=== PATIENT | female | born 1985 | race Caucasian/White ===

== ENCOUNTER 2018-08-26 06:05 | Day surgery (SDC) | payer OTHER | END 2018-08-26 11:25 | disposition home or self-care (01) | LOC: AMB-ENDOS 06:05 | DX: K57.20 Diverticulitis of large intestine with perforation and abscess without bleeding (principal) ==

== ENCOUNTER 2018-11-11 07:32 | Outpatient (CLI) | payer OTHER | END 2018-11-11 07:40 | disposition home or self-care (01) | LOC: TOM 07:32 | DX: R10.31 Right lower quadrant pain (principal); R10.32 Left lower quadrant pain ==

== ENCOUNTER 2019-05-12 21:20 | Emergency (ER) | payer OTHER ==
[~2019-05-12] VITALS: Ht 165.1 cm; Wt 136.1 kg
[2019-05-12] MEDS ORDERED: COZAAR25 MG PO (21:40)
[2019-05-12] MEDS ORDERED: HYDROCHLOROTHIA25 MG PO (21:40)
[2019-05-12] MEDS ORDERED: DICY20TA PO (21:40)
[2019-05-12] MEDS ORDERED: DEXILANT60 MG PO (21:40)
[2019-05-13] MEDS ORDERED: LEVSIN/SL0.125 MG SL (05:22)
[2019-05-13] MEDS ORDERED: PEPCID AC20 MG PO (05:22)
[2019-05-13] MEDS ORDERED: INTESTINEX680 M1 PO (05:22)
[2019-05-13] MEDS ORDERED: PROMETHAZINE HC25 MG PO (05:22)
== END 2019-05-13 05:29 | disposition home or self-care (01) ==
LOC: ER 21:20
DX: K52.89 Other specified noninfective gastroenteritis and colitis (principal); R10.84 Generalized abdominal pain